=== PATIENT | female | born 1980 | race American Indian/Alaskan Native ===

== ENCOUNTER 2016-10-26 15:23 | Outpatient (CLI) | payer BC ==
--- NOTE | 2016-10-27 08:33 | Ultrasound Report ---
Pelvic ultrasound: Left pelvic pain. Endovaginal and transabdominal imaging demonstrates an anteverted uterus measuring 4.6 x 6.1 x 12.0 cm. The myometrium is homogeneous. The endometrium is also homogeneous having a thickness of 11.2 mm. A small nabothian cyst is present. The left ovary measures 3.8 cm in size with a couple of small follicles. Color imaging demonstrates ovarian flow. The right ovary measures 3.6 cm with a small follicle. Minimal pelvic fluid. Impression: No significant pathology identified.
== END 2016-10-26 15:24 | disposition home or self-care (01) ==
LOC: SPVWC 15:23
PROVIDERS: ATTEND Specialist
DX: N88.8 Other specified noninflammatory disorders of cervix uteri (principal)
CPT/HCPCS: 76830; 76856